=== PATIENT | female | born 1950 | race Caucasian/White ===

== ENCOUNTER → 2016-09-06 | Outpatient (CLI) | payer BC ==
[~2016-09-06] MED LIST: CALCIUM600 M2 PO; GLUCOSAMINE PO; LAMICTAL 100MG100 MG PO; MULTIPLE VITAMI1 TAB PO; VITAMIN D 400400 IU PO; ZOLOFT PO
== END ==
LOC: MC.RAD 14:20
DX: Z12.31 Encounter for screening mammogram for malignant neoplasm of breast (principal)

== ENCOUNTER → 2018-05-31 | Outpatient (CLI) | payer MEDICARE, BC | LOC: COL.RAD 08:17 | DX: M25.562 Pain in left knee (principal) | CPT/HCPCS: J3301; Q9967 ==

== ENCOUNTER → 2018-12-17 | Outpatient (CLI) | payer MEDICARE, BC | LOC: COL.PUL 08:00 | DX: I27.20 Pulmonary hypertension, unspecified (principal); F17.210 Nicotine dependence, cigarettes, uncomplicated ==

== ENCOUNTER 2019-01-28 23:52 | Inpatient (IN) | payer MEDICARE, BC ==
[~2019-01-28] VITALS: Ht 157.5 cm; Wt 86.0 kg
[2019-01-29] VITALS (787 sets, daily range): BP systolic 113–176; BP diastolic 69–82; PULSE 59–64; TEMP 97.5–98.3; O2SAT 87–100
[2019-01-29 00:31] LABS: BASO # 0.1 (0.0-0.2); BASO % 0.7 % (0.0-2.0); EOS # 0.2 (0.0-0.7); EOS % 2.9 % (0-4.0); GRAN % 53.6 % (42.2-75.2); HEMATOCRIT 37.9 % (37.0-47.0); HEMOGLOBIN 12.5 g/dl (12.5-16.0); LYMPH # 2.7 (1.2-3.4); LYMPH % 35.4 % (20.0-51.0); MEAN CELL VOLUME 88 fl (80.0-100.0); MEAN CORPUSCULAR HEMOGLOBIN 29 pg (27.0-31.0); MEAN CORPUSCULAR HGB CONC 33 g/dl (33.0-37.0); MONO # 0.5 (0.1-0.6); MONO % 6.5 % (1.7-9.3); PLATELET COUNT 213 K/mm3 (130-400); REDCELL DISTRIBUTION WIDTH-CV 13.5 % (11.5-14.5)
[2019-01-29 00:33] LABS: ALBUMIN 4.4 gm/dL (3.5-5.0); BILIRUBIN,TOTAL 0.2 mg/dL (0.0-1.0); CALCIUM 9.2 mg/dL (8.4-10.2); CREATININE, serum 0.71 (0.52-1.25); POTASSIUM 3.8 mmol/L (3.4-5.0); TOTAL PROTEIN 7.2 gm/dL (6.4-8.2)
[2019-01-29 00:46] LABS: TROPONIN-I 0.306 ng/mL (0.000-0.035)
[2019-01-29] MEDS ORDERED: ASPIRIN 81M81 MG/TA2 PO (03:21)
[2019-01-29] MEDS ORDERED: LIPITOR20 MG PO (03:22)
[2019-01-29] MEDS ORDERED: COZAAR100 MG PO (03:24)
[2019-01-29 04:08] LABS: INR 0.9 (0.8-3.0); PROTHROMBIN TIME 10.3 SECONDS (9.7-12.8)
[2019-01-29 04:11] LABS: PARTIAL THROMBOPLASTIN TIME 29.6 SECONDS (26.0-37.0)
[2019-01-29] MEDS ORDERED: LAMICTAL200 MG PO (04:15)
[2019-01-29] MEDS ORDERED: ZOLOFT 100MG100 MG PO (04:16)
[2019-01-29 04:31] LABS: BASO % 0.6 % (0.0-2.0); EOS # 0.2 (0.0-0.7); EOS % 2.5 % (0-4.0); GRAN # 4.2 (1.4-6.5); GRAN % 57.8 % (42.2-75.2); LYMPH # 2.3 (1.2-3.4); LYMPH % 32.2 % (20.0-51.0); MEAN CELL VOLUME 89 fl (80.0-100.0); MEAN CORPUSCULAR HEMOGLOBIN 29 pg (27.0-31.0); MEAN CORPUSCULAR HGB CONC 32 g/dl (33.0-37.0); MEAN PLATELET VOLUME 10.8 fl (7.4-10.4); MONO # 0.5 (0.1-0.6); MONO % 6.3 % (1.7-9.3); PLATELET COUNT 185 K/mm3 (130-400); REDCELL DISTRIBUTION WIDTH-CV 13.4 % (11.5-14.5)
[2019-01-29 04:34] LABS: HEMATOCRIT 33.9 % (37.0-47.0)
[2019-01-29 04:40] LABS: ALBUMIN 3.5 gm/dL (3.5-5.0); BILIRUBIN,TOTAL 0.3 mg/dL (0.0-1.0); CHOLESTEROL RISK RATIO 2.7; CREATININE, serum 0.6 (0.52-1.25); POTASSIUM 3.9 mmol/L (3.4-5.0); TOTAL PROTEIN 5.9 gm/dL (6.4-8.2); TROPONIN-I 3 HR POST INITIAL 0.806 ng/mL (0.000-0.034)
[2019-01-29 04:55] LABS: COLLECTION METHOD CLEAN CATCH
[2019-01-29 05:01] LABS: MUCOUS Present /lpf; PH 6 (5-8); SQUAMOUS EPITHELIAL None Seen /hpf; URINE APPEARANCE Clear; URINE BACTERIA None Seen /hpf; URINE BILIRUBIN Negative (NEGATIVE); URINE BLOOD 1+ (NEGATIVE); URINE COLOR Colorless; URINE GLUCOSE Negative (NEGATIVE); URINE KETONE Negative (NEGATIVE); URINE LEUKOCYTE ESTERASE Negative (NEGATIVE); URINE NITRATE Negative (NEGATIVE); URINE PROTEIN(semi-quant) Negative (NEGATIVE); URINE RBC None Seen /hpf; URINE UROBILINOGEN Negative (NEGATIVE)
[2019-01-30] VITALS (722 sets, daily range): BP systolic 95–171; BP diastolic 35–103; PULSE 59–76; TEMP 97.8–98.7; O2SAT 78–99
[2019-01-30 05:38] LABS: CALCIUM 8.1 mg/dL (8.4-10.2); CREATININE, serum 0.58 (0.52-1.25); POTASSIUM 3.9 mmol/L (3.4-5.0)
[2019-01-30 05:42] LABS: HEMATOCRIT 29.1 % (37.0-47.0); HEMOGLOBIN 9.4 g/dl (12.5-16.0); MEAN CELL VOLUME 91 fl (80.0-100.0); MEAN CORPUSCULAR HEMOGLOBIN 29 pg (27.0-31.0); MEAN CORPUSCULAR HGB CONC 32 g/dl (33.0-37.0); MEAN PLATELET VOLUME 10.9 fl (7.4-10.4); PLATELET COUNT 153 K/mm3 (130-400); REDCELL DISTRIBUTION WIDTH-CV 13.7 % (11.5-14.5)
[2019-01-31] VITALS (190 sets, daily range): BP systolic 117–143; BP diastolic 56–88; PULSE 59–81; TEMP 97.7–98; O2SAT 90–98
[2019-01-31] MEDS ORDERED: BRILINTA90 MG PO (09:27)
== END 2019-01-31 14:35 | disposition home or self-care (01) | DRG 246 ==
LOC: COL.ER 23:52 → ICU 01-29 01:03
PROVIDERS: Emergency Medicine; Nurse Practitioner Family; Physician Assistant
PROC: 027034Z Dilation of Coronary Artery, One Artery with Drug-eluting Intraluminal Device, Percutaneous Approach (ICD-10-PCS; principal; 2019-01-30)
PROC: 4A023N7 Measurement of Cardiac Sampling and Pressure, Left Heart, Percutaneous Approach (ICD-10-PCS; 2019-01-30)
PROC: B2111ZZ Fluoroscopy of Multiple Coronary Arteries using Low Osmolar Contrast (ICD-10-PCS; 2019-01-30)
PROC: B2151ZZ Fluoroscopy of Left Heart using Low Osmolar Contrast (ICD-10-PCS; 2019-01-30)
DX: I25.119 Atherosclerotic heart disease of native coronary artery with unspecified angina pectoris (principal); I21.4 Non-ST elevation (NSTEMI) myocardial infarction; N39.0 Urinary tract infection, site not specified; I10 Essential (primary) hypertension; E78.5 Hyperlipidemia, unspecified; Z95.0 Presence of cardiac pacemaker; F17.200 Nicotine dependence, unspecified, uncomplicated; F32.9 Major depressive disorder, single episode, unspecified
CPT/HCPCS: 99232-AI; 99239; C1725; C1769; C1874; C1887; C9600; J1170; J1644; J2250; J2270; J2405; J3010; J7030; Q9967

== ENCOUNTER 2021-01-21 16:36 | Emergency (ER) | payer MEDICARE, BC ==
[~2021-01-21] VITALS: Ht 157.5 cm; Wt 77.3 kg
[~2021-01-21 16:36] MED LIST changes: +ASPIRIN 81M81 MG/TA2 PO; +BRILINTA90 MG PO; +COZAAR100 MG PO; +LAMICTAL200 MG PO; +LIPITOR20 MG PO; +ZOLOFT 100MG100 MG PO
[2021-01-21 17:44] LABS: BASO % 0.4 % (0.0-2.0); EOS # 0.1 (0.0-0.7); EOS % 1.5 % (0-4.0); GRAN # 3.4 (1.4-6.5); GRAN % 62.4 % (42.2-75.2); HEMOGLOBIN 11.4 g/dl (12.5-16.0); LYMPH # 1.5 (1.2-3.4); LYMPH % 28.4 % (20.0-51.0); MEAN CELL VOLUME 91 fl (80.0-100.0); MEAN CORPUSCULAR HEMOGLOBIN 30 pg (27.0-31.0); MEAN CORPUSCULAR HGB CONC 33 g/dl (33.0-37.0); MEAN PLATELET VOLUME 10.4 fl (7.4-10.4); MONO # 0.4 (0.1-0.6); MONO % 6.9 % (1.7-9.3); PLATELET COUNT 175 K/mm3 (130-400); RED BLOOD COUNT 3.84 M/mm3 (4.10-5.30); REDCELL DISTRIBUTION WIDTH-CV 13.3 % (11.5-14.5)
[2021-01-21 17:54] LABS: ALBUMIN 4.1 gm/dL (3.5-5.0); BILIRUBIN,TOTAL 0.3 mg/dL (0.0-1.0); C-REACTIVE PROTEIN 0.6 mg/dL (0.0-0.9); CALCIUM 9.3 mg/dL (8.4-10.2); CREATININE, serum 0.77 (0.52-1.25); POTASSIUM 4.5 mmol/L (3.4-5.0); TOTAL PROTEIN 6.9 gm/dL (6.4-8.2)
[2021-01-21 18:06] LABS: HEMATOCRIT 34.8 % (37.0-47.0)
[2021-01-21 19:13] LABS: ERYTHROCYTE SEDIMENTATION RATE 13 mm/hr (0-30)
[2021-01-21] MEDS ORDERED: NORCO 325 MG-51 TAB PO (19:36)
[2021-01-21 19:57] VITALS: BP 115/75; PULSE 80; TEMP 98
== END 2021-01-21 19:57 | disposition home or self-care (01) ==
LOC: COL.ER 16:36
PROVIDERS: Nurse Practitioner
DX: M25.561 Pain in right knee (principal); I10 Essential (primary) hypertension; F32.9 Major depressive disorder, single episode, unspecified; I25.10 Atherosclerotic heart disease of native coronary artery without angina pectoris; E78.5 Hyperlipidemia, unspecified; Z87.891 Personal history of nicotine dependence; Z79.899 Other long term (current) drug therapy

== ENCOUNTER 2021-03-10 12:09 | Inpatient (IN) | payer MEDICARE, BC ==
[~2021-03-10] VITALS: Ht 160 cm; Wt 82.0 kg
[~2021-03-10 12:09] MED LIST changes: +NORCO 325 MG-51 TAB PO
[2021-04-06] VITALS (13 sets, daily range): BP systolic 127–163; BP diastolic 44–67; PULSE 59–80; TEMP 98.1–99
[2021-04-06] MEDS ORDERED: LIPITOR 80MG80 MG PO (06:57)
[2021-04-06] MEDS ORDERED: LAMICTAL150 MG PO (06:59)
[2021-04-06] MEDS ORDERED: ZOLOFT 100MG100 MG PO (06:59)
[2021-04-06] MEDS ORDERED: CALCIUM 600MG+D1 TAB PO (07:00)
[2021-04-06] MEDS ORDERED: TYLENOL 500MG500 MG PO (07:01)
--- NOTE | 2021-04-06 14:31 | NUR ---
Contacted Lg BENÍTEZ, patient continues to complain of pain 8/10 to right knee, new order for morphine, medication given at this time.
--- NOTE | 2021-04-06 19:18 | NUR ---
Patient having continued pain since arrival from OR. Has been up to comode and to recliner with x 1 assist and walker. Cryocuff to right knee. Brody wrap to right lower extremity. Pedal pulses intact. Patient tolerating clear liquid diet and advanced to regular diet for dinner. Daughter at bedside. Patient denies needs at this time. Reported off to shift engineer.
--- NOTE | 2021-04-06 23:46 | NUR ---
Patient assessed around 2029. Complained of level 10 pain. Given scheduled Toradol. Given PRN Roxicodone around 2200 for level 10 pain. Continues to have level 10 pain to right knee, and given scheduled APAP, as well as PRN Morphine at this time. Cryocuff to right knee. Dressing/winnie CDI. One assist with walker to bedside commode. Patient's INT to left hand leaking. D/C'd, and new one started to right forearm. Patient voices no further questions, needs, or concerns at this time. Resting in bed with call light within reach.
--- NOTE | 2021-04-07 02:39 | NUR ---
Patient given PRN Roxicodone with scheduled Toradol for level 10 pain to right knee. Assisted to bedside commode and repositioned in bed. Call light within reach.
[2021-04-07 04:19] VITALS: BP 122/43; PULSE 64; TEMP 99.3
--- NOTE | 2021-04-07 05:43 | NUR ---
Patient given scheduled APAP and PRN Morphine at this time for level 10 pain to right knee. Voices no further questions, needs, or concerns at this time.
[2021-04-07 08:32] VITALS: BP 131/80; PULSE 61; TEMP 98
--- NOTE | 2021-04-07 11:01 | NUR ---
PT OUT TO NOBLE AMBULATING WITH THERAPY. RETURNED TO ROOM, DRESSING CHANGE COMPLETE. INCISION CDI WITH JACOBY OVER INCISION. PT CONTINUES TO RATE PAIN AT 10/10.
--- NOTE | 2021-04-07 11:36 | NUR ---
Follow-up visit; Patient thanked Director Of Training for looking in on her again today and keeping her in Director Of Training's prayers.
[2021-04-07 12:01] VITALS: BP 128/60; PULSE 67; TEMP 98.1
--- NOTE | 2021-04-07 16:26 | NUR ---
Rn Flight met with patient to discuss discharge plan. Patient lives alone in [place] and sees Dr. Emery for primary care. Patient obtains medications from [facility] with no difficulties. Patient is normally independent with ADLS however has a cane, walker, and commode at home. Patient is interested in completing [facility]. SW assisted patient in completing the form. Patient chose to designate her twin sons, Eulalio and Candelario. HETAL and HETAL Ding provided witness signature. SW provided original and copies to patient then placed a copy in patient's chart. SW reviewed PT recommendation for possible Home Health. Patient is interested in [facility]. [facility] contacted [facility] and fax[facility] referral. SW advised patient she would need to think of a second preference for facility as [facility] may not have bed availability. Patient states she will talk with her niece about this. Discharge Plan: Pending screen from [facility]
[2021-04-07 16:39] VITALS: BP 117/38; BP 128/41; PULSE 66; TEMP 98.7
[2021-04-07 19:50] VITALS: BP 103/50; PULSE 76; TEMP 99.5
--- NOTE | 2021-04-07 21:47 | NUR ---
Patient assessed around 2029. Complained of level 9 pain to right knee. Given scheduled Toradol and PRN Roxicodone. Cryocuff to right knee. ANABELLA lopez and SCD to BLE. Aquacell to right knee CDI. Patient has been ambulating to bathroom with walker and one assist this shift. Patient voices no further questions, needs, or concerns at this time. Resting in bed with call light within reach.
[2021-04-07 23:41] VITALS: BP 144/49; PULSE 69; TEMP 99.4
--- NOTE | 2021-04-08 00:43 | NUR ---
Patient complaining of level 7 pain to right knee at this time. Given PRN Roxicodone and scheduled APAP at this time.
[2021-04-08 02:23] VITALS: BP 101/42; PULSE 71; TEMP 99.4
--- NOTE | 2021-04-08 05:21 | NUR ---
Patient rating pain at a 7 at this time. Given scheduled APAP with PRN Roxicodone as requested for pain. Cryocuff to right knee continues. ANABELLA lopez and SCDs are on. Has been getting up and ambulating to bathroom this shift. Voices no further questions, needs, or concerns at this time. Resting in bed with call light within reach.
[2021-04-08 07:51] VITALS: BP 101/46; PULSE 63; TEMP 98.3
--- NOTE | 2021-04-08 10:32 | NUR ---
PT UP TO NOBLE WITH THERAPY. AMBULATING WITH SLOW STEADY GAIT. DRESSING TO LEFT KNEE CDI. PAIN WELL CONTROLLED WITH PO MEDS.
[2021-04-08 11:23] VITALS: BP 138/51; PULSE 63; TEMP 98.7
[2021-04-08 15:25] VITALS: BP 120/56; PULSE 62; TEMP 98.9
--- NOTE | 2021-04-08 16:36 | NUR ---
[facility] followed up with patient who is agreeable to [facility] as a second preference. HETAL faxed referral. [facility] then contacted HETAL and advised they can accept tomorrow. HETAL notified [place] at [facility] and RN, Adrian. Discharge Plan: [facility] tomorrow
[2021-04-08 23:04] VITALS: BP 124/60; PULSE 79; TEMP 97.8
[2021-04-09 03:11] VITALS: BP 129/60; PULSE 85; TEMP 97.8
--- NOTE | 2021-04-09 03:46 | NUR ---
PT SLEEPING IN BED @ THIS TIME. CRYOCUFF ON RIGHT KNEE. PT AMBULATED APPROXIMATELY 60FT WITH SBA IN HALLWAY EARLIER IN SHIFT. PT USES WALKER ET GAITBLET, TOLERATES WELL, GAIT IS STEADY.
[2021-04-09] MEDS ORDERED: XARELTO10 MG PO (06:21)
[2021-04-09] MEDS ORDERED: ROXICODONE 55 MG/TAB PO (06:22)
[2021-04-09 07:24] VITALS: BP 114/46; PULSE 64; TEMP 98.5
[2021-04-09 07:33] VITALS: BP 140/58
[2021-04-09] MEDS ORDERED: HYZAAR 12.5 MG-1 TAB PO (07:39)
--- NOTE | 2021-04-09 09:00 | NUR ---
Patient alert and oriented, answers questions appropriately. See assessment. Right knee with Aquacel CDI, no redness noted around borders. Pulses palpable to RLE, sensation intact, no c/o numbness or tingling. SCDs and ANABELLA hose in place. FWB. Uses FWW and gait belt. No c/o at this time.
[2021-04-09 10:51] VITALS: BP 140/58; PULSE 64; TEMP 98.5
--- NOTE | 2021-04-09 12:15 | NUR ---
Patient transfered to [facility] via wheelchair with transportation staff at 1200. Report called to Tisha. Paperwork sent.
--- NOTE | 2021-04-09 14:28 | NUR ---
Patient is ready for discharge to [facility] today. HETAL faxed clinical updates, including negative covid results to [facility] who advised they can accept today. HETAL set transport time for 1130. HETAL met with patient who is agreeable to discharge time. HETAL faxed discharge orders to [facility] at [facility]. Discharge Plan: [facility] today
== END 2021-04-09 12:00 | DRG 470 ==
LOC: SURG 04-06 05:37 → INPTSU 04-06 05:37 → SURG 04-06 07:30
PROVIDERS: ADMIT Orthopaedic Surgery
PROC: 0SRC0J9 Replacement of Right Knee Joint with Synthetic Substitute, Cemented, Open Approach (ICD-10-PCS; principal; 2021-04-06 07:30)
DX: M17.11 Unilateral primary osteoarthritis, right knee (principal); M81.0 Age-related osteoporosis without current pathological fracture; E78.00 Pure hypercholesterolemia, unspecified; I10 Essential (primary) hypertension; F32.9 Major depressive disorder, single episode, unspecified; Z20.822 Contact with and (suspected) exposure to COVID-19
CPT/HCPCS: A9284; C1713; C1776; J0690; J1885; J2250; J2270; J2405; J2704; J2795; J7120